=== PATIENT | male | born 1995 | race Caucasian/White ===

== ENCOUNTER 2019-05-28 19:22 | Emergency (ER) | payer SELFPAY | END 2019-05-28 19:30 | disposition home or self-care (01) | LOC: MW.ED 19:22 | DX: Z53.21 Procedure and treatment not carried out due to patient leaving prior to being seen by health care provider (principal) ==

== ENCOUNTER 2019-06-01 17:19 | Emergency (ER) | payer SELFPAY ==
--- NOTE | 2019-06-01 17:47 | EDM.PDOC ---
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 He says that he was recently treated in [place] with a sinus infection and finished his amoxicillin 3 days ago and still feels like the right side of his face has pressure and he is blowing out yellow and green drainage. He says that bilateral sinuses and nasal passages are draining but right is greater than left. He doesn't have a sore throat and has no chest pain shortness of breath abdominal pain nausea or vomiting. He said that when he was on the plane his ears were popping and since he has gotten a plane there are ringing and they have pressure and he was concerned Review of systems: As per history of present illness and below otherwise all systems reviewed and negative. Past medical history: As per history of present illness and as reviewed below otherwise noncontributory. Surgical history: As per history of present illness and as reviewed below otherwise noncontributory. Social history: No reported history of drug or alcohol abuse. Family history: As per history of present illness and as reviewed below otherwise noncontributory. Physical exam: General: Well-developed mildly overweight man who is nontoxic and vital signs are by me. He does sleep with nasal quality to voice HEENT: Atraumatic, normocephalic, pupils reactive, negative for conjunctival pallor or scleral icterus, mucous membranes moist, throat clear, neck supple, nontender, trachea midline. There is no cervical adenopathy or nuchal rigidity and there is tenderness in the maxillary and frontal sinuses right greater than left. TM on the left is dull and there is some minimal erythema but no gross perforation is seen and the TM is difficult to see in its full circumference. There is wax in the external canal and there is no mastoid redness or tenderness. The right TM has multiple compartmentalization of the surface consistent with the patient's history of surgeries and it is shiny not told or red and I do not see any gross perforation that this exam is challenging due to his surgical history. There is no mastoid redness or tenderness. Lungs: Clear to auscultation, breath sounds equal bilaterally, chest nontender. Heart: S1S2, regular rate and rhythm no overt murmurs Abdomen: Soft, nondistended, nontender. NABS Pelvis: Deferred Genitourinary: Deferred. Rectal: Deferred. Extremities: Atraumatic, full range of motion Neurovascular unremarkable. Neuro: Awake, alert, oriented. Cranial nerves II through XII unremarkable. Cerebellum unremarkable. Motor and sensory unremarkable throughout. Exam nonfocal. Diagnostics: [] Therapeutics: [] Discussed with the patient at length that he will need follow-up with ENT and he says that he can do that when he goes back to [place] next week. I advised him on [id number] medications for reducing the fluid and the pressure as well as Flonase and will treat him with a different antibiotic as he has finished the amoxicillin without relief. I plan on giving him Cefdnir Impression: []Persistent right frontal and maxillary sinusitis, bilateral otalgia Definitive disposition and diagnosis as appropriate pending reevaluation and review of above. Ear Pain Score (Numeric/FACES): 8 - Related Data Allergies Allergy/AdvReac Type Severity Reaction Status Date / Time No Known Allergies Allergy Verified 06/01/19 17:28 Home Meds: Home Meds . [No Known Home Meds] 06/01/19 [History] Past Medical History - Infectious Disease History Infectious Disease History: Reports: None - Past Surgical History HEENT Surgical History: Reports: Myringotomy w Tube(s) GI Surgical History: Reports: Appendectomy Social & Family History - Family History Family Medical History: Noncontributory - Tobacco Use Smoking Status *Q: Never Smoker - Caffeine Use Caffeine Use: Reports: Coffee - Recreational Drug Use Recreational Drug Use: No ED ROS GENERAL - Review of Systems Review Of Systems: ROS reveals no pertinent complaints other than HPI. ED EXAM, GENERAL - Physical Exam Exam: See Below (See dictation) Course - Vital Signs Last Recorded V/S: Last Vital Signs Temp 36.4 C 06/01/19 17:29 Pulse 141 H 06/01/19 17:29 Resp 18 06/01/19 17:29 BP 147/73 H 06/01/19 17:29 Pulse Ox 94 L 06/01/19 17:29 Departure - Departure Time of Disposition: 17:47 Disposition: Home, Self-Care 01 Condition: Good Clinical Impression: Sinusitis, acute Qualifiers: Sinusitis location: unspecified location Recurrence: recurrent Qualified Code(s ): J01.91 - Acute recurrent sinusitis, unspecified - Discharge Information Referrals: PCP,Unknown [Primary Care Provider] - Additional Instructions: The following information is given to patients seen in the emergency department who are being discharged to home. This information is to outline your options for follow-up care. We provide all patients seen in our emergency department with a follow-up referral. The need for follow-up, as well as the timing and circumstances, are variable depending upon the specifics of your emergency department visit. If you don't have a primary care physician on staff, we will provide you with a referral. We always advise you to contact your personal physician following an emergency department visit to inform them of the circumstance of the visit and for follow-up with them and/or the need for any referrals to a consulting specialist. The emergency department will also refer you to a specialist when appropriate. This referral assures that you have the opportunity for followup care with a specialist. All of these measure are taken in an effort to provide you with optimal care, which includes your followup. Under all circumstances we always encourage you to contact your private physician who remains a resource for coordinating your care. When calling for followup care, please make the office aware that this follow-up is from your recent emergency room visit. If for any reason you are refused follow-up, please contact the [facility] emergency department at and ask to speak to the emergency department charge nurse. [facility] Primary care- Internal Medicine and Family [address] [address] Please use [id number] decongestants as we discussed, Claritin Aliya Zyrtec and add Benadryl at sleep times as you choose. Use Flonase over-the- counter to open the nasal passages and promote nasal drainage and use cool mist prior sleep times. Please fill the prescription for the antibiotic you have been given today Cefdnir and take as directed. Use [id number] medications for pain management and return to ER as needed and as discussed. Please plan on following up with your provider in [place] or one of hours for reevaluation and further care at the conclusion of your antibiotic therapy
== END 2019-06-01 18:24 | disposition home or self-care (01) ==
LOC: MW.ED 17:19
DX: H92.03 Otalgia, bilateral (principal); J01.11 Acute recurrent frontal sinusitis; J01.01 Acute recurrent maxillary sinusitis; Z98.890 Other specified postprocedural states
CPT/HCPCS: 93005; 99283-25